=== PATIENT | female | born 1945 | race Caucasian/White ===

== ENCOUNTER → 2019-01-07 | Outpatient (CLI) | payer OTHER | LOC: RAD 15:46 | DX: M47.26 Other spondylosis with radiculopathy, lumbar region (principal); M47.818 Spondylosis without myelopathy or radiculopathy, sacral and sacrococcygeal region; M48.07 Spinal stenosis, lumbosacral region; M43.17 Spondylolisthesis, lumbosacral region; M19.90 Unspecified osteoarthritis, unspecified site; Z88.2 Allergy status to sulfonamides ==

== ENCOUNTER → 2019-01-16 | Outpatient (CLI) | payer OTHER ==
[~2019-01-16] VITALS: Ht 167.6 cm; Wt 68.0 kg
[~2019-01-16] MED LIST: AMITRIPTYLINE100 MG PO; EFFEXOR XR75 MG PO; OMEPRAZOLE40 MG PO; PREDNISONE 20 M20 MG PO
--- NOTE | ~2019-01-16 | HPC ---
[facility] [address] [place] [address] PAIN MANAGEMENT CONSULTATION Name: HUMBERTO HAIDER Room #: REG HENRY AdryanRoLaura#: [id number] Admission: 01/16/19 ������������������ Attend Phys: Carmen Joshi MD Discharge: ������������������ Date of : 49 Report #: [id number] THIS REPORT FOR: //name// CC: Patric Joshi DATE OF SERVICE: 01/16/2019 CHIEF COMPLAINT: Pain in the low back area with pain down into the legs on left and right side. HISTORY OF PRESENT ILLNESS: The patient is a 73-year-old who has been referred to the pain clinic for evaluation. The patient states that she has been experiencing increased back and leg pain. 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 She was pouring, she was dumping water out of a wading pool. She then noted pain and discomfort in her right buttocks. Pain has continued to radiate down into her right leg. She has been trying to exercise and decrease her pain. She has seen a chiropractor in the past. She has noticed that the pain has been worse over the last week and a half. She has tried ice on the back. She has tried pillows under her legs. She does sleep on her side, so this makes it somewhat more problematic to rest with her legs on the pillow. Has tried Aleve, Excedrin and ibuprofen. She has a history of fibromyalgia. States that she is trying to do exercises to increase her core strength. ALLERGIES: SULFA. CURRENT MEDICATIONS: Omeprazole 40 mg b.i.d., amitriptyline 100 mg at bedtime, Effexor XR 75 mg daily. PAST MEDICAL HISTORY: 1. Handy esophagitis diagnosed in 2010, eustachian tube dysfunction. 2. Fibromyalgia. 3. History of bone scan. PAST SURGICAL HISTORY: 1. Breast implant removal with transflap. 2. Hemorrhoidectomy. 3. Tonsillectomy and adenoidectomy. 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 She is working at this juncture. REVIEW OF SYSTEMS: Generally good health, fever, sweats, headaches, chronic [facility] [address] [place] [address] PAIN MANAGEMENT CONSULTATION Name: HUMBERTO HAIDER ARTUR Room #: REG [facility].#: [id number] Admission: 01/16/19 ������������������ Attend Phys: Carmen Joshi MD Discharge: ������������������ Date of : 49 Report #: [id number] sinus. LABORATORY DATA: X-ray of lumbar spine, AP and lateral, 2/3 views, indication of back pain, right sciatica. Findings: There are degenerative disk changes evident throughout the lumbar spine. Appearing similar to the prior CT exam. There is bilateral L5 spondylolysis with disk narrowing and grade 1 spondylolisthesis at L5-S1 and these changes were also evident on prior CT. Alignment is otherwise anatomical. No vertebral compression deformities noted. PAIN CLINIC ASSESSMENT AND PQRS: 1. The patient has some arthritic changes in the lower portion of her back. She is not being treated for rheumatoid arthritis. 2. Height 5 feet 6 inches, weight 150 pounds, BMI is 24.4. 3. VITAL SIGNS: Blood pressure 126/95, pulse 102, respiratory rate 16, room air saturation is 100%. 4. Pain intensity 8-9/10. 5. Fall history: The patient has not fallen in the last 3 months. 6. Blood thinner. The patient is not on a blood thinning medication. 7. Hypertension. The patient is not being treated for hypertension. 8. Opioids greater than 6 weeks. The patient is not on her opioid regimen. 9. Risk assessment tool for opioids is low. 10. Functional assessment tool: 44/70. 11. Recreational drug use. The patient denies use of recreational drugs. 12. Tobacco: The patient has never smoked. 13. Alcohol: The patient drinks 1-2 alcoholic beverages on occasion. PHYSICAL EXAMINATION: GENERAL: The patient is a well-developed, well-nourished white female. Appears her stated age. She is alert and oriented x 3. Her affect is appropriate. Speech is fluent. HEENT: Normocephalic, atraumatic. Extraocular eye muscles intact. Sclerae nonicteric. Mucous membranes are moist. NECK: Without adenopathy or JVD. LUNGS: Clear to auscultation. HEART: Regular rate. S1, S2. EXTREMITIES: Upper extremity muscle strength judged to be 5/5 for the major muscle groups. The patient does have some soreness in the right shoulder. The patient without significant scoliosis, kyphosis or lordosis. The patient has pain radiating down in the lower portion of her back to the L5-S1 dermatomal distribution bilaterally in her legs. Upper extremity muscles deep tendon reflexes are +3 for the biceps, +1 for the triceps, trace for brachioradialis, +1 for the patella bilaterally, trace for ankle jerks. Anterior and posterior spring tests are negative. Eder sign is negative. Straight leg raise positive on the left. The patient complains of pain that radiates down to the posterior portion of her leg in the L5 dermatomal distribution. [address] [address] PAIN MANAGEMENT CONSULTATION Name: HUMBERTO HAIDER Room #: REG HENRY Pham#: [id number] Admission: 01/16/19 ������������������ Attend Phys: Carmen Joshi MD Discharge: ������������������ Date of : 49 Report #: [id number] IMPRESSION: 1. Lumbar radiculopathy with L5-S1 dermatomal distribution. 2. Handy esophagitis diagnosed in 2010, eustachian tube dysfunction. 3. Fibromyalgia. 4. History of bone scan. RECOMMENDATIONS: We discussed treatment options with the patient. Risks and benefits of an epidural steroid injection were discussed. They include but are not limited to infection, worsening of pain, no improvement in pain and nerve damage with paralysis. The patient elects to proceed. PROCEDURE NOTE: The patient was taken to the procedure area. She was then assisted in getting on examination table. Her back was sterilely prepped with a Betadine solution and allowed to dry. At the L5-S1 area, 0.25% bupivacaine was infiltrated using a 25-gauge needle. A 17-gauge Tuohy using a midline approach was undertaken. There was no CSF, heme or paresthesia. Total of 80 mg of Depo-Medrol, 40 mg of triamcinolone and 2 mL of 0.25% bupivacaine was injected. The patient tolerated the procedure well. There were no complications. A total of 13 seconds fluoro time was used. The patient remained in the pain clinic for an appropriate amount of time. She will follow up in the future as needed. We would like to thank you for letting us participate in her care. We hope she continues to improve. ��������������������������������������������� ���������������������������������������� By: ��������������������������������������������� [id number] Carmen Joshi MD /HOMER
[2019-01-16 13:21] VITALS: BP 126/98
--- NOTE | 2019-01-16 14:10 | NUR ---
Pain Clinic Assessment: 1. History of Osteoarthritis: Not Applicable History of Rheumatoid Arthritis: Not Applicable 2. Height: 5 ft. 6 in. 167.6 cm. Weight: 150.0 lb. oz. 68.040 kg. Patient's BMI: 24.2 3. Vital Signs: BP: 126/98 Pulse: 102 Resp: 16 Temp: 02 Sat: 100 ECG Mon: 4. Pain Intensity: 8 5. Fall Risk: Dizziness: N Needs help standing or walking: N Fallen in the last 3 months: N Fall risk comments: 6. Patient on Blood Thinner: None 7. History of Hypertension: N 8. Opioid Therapy greater than 6 weeks: N Opiate Contract Signed: 9. Risk Assessment Tool Provided: 10. Functional Assessment Tool: 11. Recreational Drug Use: Never Drug Type: Tobacco Use: Never Smoker Tobacco Type: Amount or Packs/day: How Many Years: Alcohol Use: Yes Frequency: Special Occasions Quant: 1-2
== END | disposition home or self-care (01) ==
LOC: PAIN 06:52
DX: M54.16 Radiculopathy, lumbar region (principal); M79.7 Fibromyalgia; K22.70 Barrett's esophagus without dysplasia; H69.90 Unspecified Eustachian tube disorder, unspecified ear; I10 Essential (primary) hypertension; Z88.2 Allergy status to sulfonamides; Z79.899 Other long term (current) drug therapy; Z98.890 Other specified postprocedural states